=== PATIENT | male | born 1930 | race Caucasian/White ===

== ENCOUNTER 2018-04-29 10:13 | Observation (INO) ==
--- NOTE | 2018-04-29 10:28 | ED ---
HPI General Chief complaint: [employer] Sh[employer]er Problem Stated complaint: tube replacement Time Seen by Provider: 04/29/18 10:25 Source: patient Mode of arrival: other Limitations: no limitations History of Present Illness HPI Narrative: The patient is a 88-year-old male who presents to the emergency department via [facility] after his gastrostomy tube apparently fell out. The patient is a somewhat limited historian, but does state he has had the gastrostomy tube in place for 18 weeks. The gastrostomy tube was sent with the patient, it was an 18 [place] gastrostomy tube. The patient denies any nausea, vomiting, or abdominal pain. The patient is asymptomatic. I did asked the patient why he had a gastrostomy tube placed, he was unable to give an exact day when the gastrostomy tube was placed or for what specific reasons. Review the patient's paperwork reveals he recently had an intracranial hemorrhage with secondary dysphagia and a gastrostomy tube was placed. MD complaint: Reports other Onset (ago): day(s) Reason for Medical Clearance: other Place: other Alleged Intoxication: No Traumatic Symptoms: Reports denies traumatic injury Associated Symptoms: Reports denies other symptoms Treatments Prior to Arrival: Reports none Home Medications Medication Instructions Recorded Confirmed atorvastatin 80 mg FEEDING TUBE QPM 04/29/18 04/29/18 bisacodyl [Dulcolax (bisacodyl)] 10 mg [place] DAILY PRN 04/29/18 04/29/18 escitalopram oxalate [Lexapro] 10 mg FEEDING TUBE DAILY 04/29/18 04/29/18 famotidine 20 mg FEEDING TUBE BID 04/29/18 04/29/18 insulin lispro [Humalog U-100 1 sliding scale dose SUBCUT Q6HR 04/29/18 04/29/18 Insulin] ipratropium-albuterol 3 ml INHALATION Q6H PRN 04/29/18 04/29/18 levetiracetam [Keppra] 500 mg PO BID 04/29/18 04/29/18 magnesium citrate [Citroma] 296 ml PO QAM PRN 04/29/18 04/29/18 magnesium hydroxide [Milk of 30 ml PO HS PRN 04/29/18 04/29/18 Magnesia] metformin 750 mg PO QPM 04/29/18 04/29/18 polyethylene glycol 3350 [Miralax] 17 g FEEDING TUBE DAILY 04/29/18 04/29/18 sodium phosphates [Enema 118 ml [place] DAILY PRN 04/29/18 04/29/18 Disposable] Allergies Allergy/AdvReac Type Severity Reaction Status Date / Time No Known Allergies Allergy Verified 04/29/18 10:25 Review of Systems ROS: all other systems reviewed are negative [facility] Medical History Medical History Atrial fibrillation (Acute) Diabetes (Acute) Difficulty walking (Acute) Dysphagia (Acute) HTN (hypertension) (Acute) Hyperlipemia (Acute) Social History Social History Substance History: No History of Abuse Smoking Status: Cognitive impairment How Often Do You Have a Drink Containing Alcohol: Never Recent Travel in [facility] within the Last 8 Weeks: No Exam Narrative Exam Narrative: GENERAL: Awake, alert, pleasant 88-year-old male who appears his stated age and is in no acute respiratory distress. SKIN: Focused skin assessment warm/dry. HEAD: Atraumatic. Normocephalic. EYES: No injection or drainage. ENT: No nasal bleeding or discharge. Mucous membranes pink and moist. NECK: Trachea midline. No JVD. CARDIOVASCULAR: Regular rate and rhythm. No murmur appreciated. RESPIRATORY: No accessory muscle use. Clear to auscultation. Breath sounds equal bilaterally. GASTROINTESTINAL: Abdomen soft, non-tender, nondistended. Gastrostomy hole noted with crusting over the affected area. There do appear to be suture ties still in place. MUSCULOSKELETAL: No obvious deformities. No clubbing. No cyanosis. No edema. NEUROLOGICAL: Awake and alert. No obvious cranial nerve deficits. Motor grossly within normal limits. Normal speech. Follows simple directions. PSYCHIATRIC: Appropriate mood and affect; insight and judgment normal. Course Initial Documented Vital Signs Temperature 98.0 F 04/29/18 10:35 Pulse Rate 68 04/29/18 10:35 Respiratory Rate 20 04/29/18 10:35 Blood Pressure 158/70 H 04/29/18 10:35 Pulse Oximetry 96 04/29/18 10:35 Last Documented Vital Signs Temperature 98.0 F 04/29/18 10:35 Pulse Rate 68 04/29/18 10:35 Respiratory Rate 20 04/29/18 10:35 Blood Pressure 158/70 H 04/29/18 10:35 Pulse Oximetry 96 04/29/18 10:35 Medical Decision Making MDM Narrative Medical decision making narrative: I was unable to place the 18 [place] gastrostomy tube at bedside. I had a discussion with the radiologist, there is no interventional radiologist in house. Therefore, patient will have labs drawn and sent and will be scheduled for outpatient gastrostomy tube placed tomorrow. The patient will have an IV placed for IV hydration placed on normal saline. The patient will be transferred back to the detention with paperwork so they can call and schedule an outpatient gastrostomy tube placement tomorrow. Medical Screen Exam Complete: Yes Emergency Medical Condition: Yes Differential Diagnosis Differential Diagnosis: Differential diagnosis includes gastrostomy tube dislodgment, gastrostomy tube malfunction, dysphagia, recent intracranial hemorrhage. Lab Data Result diagrams: 04/29/18 11:00 04/29/18 11:00 Lab Results 04/29/18 04/29/18 04/29/18 Range/Units 11:00 11:00 11:00 WBC 8.8 (4.0-11.0) th/mm3 RBC 4.78 (4.50-5.90) mil/mm3 Hgb 14.1 (13.0-17.0) gm/dL Hct 42.3 (39.0-51.0) % MCV 88.5 (80.0-100.0) fL MCH 29.5 (27.0-34.0) pg MCHC 33.3 (32.0-36.0) % RDW 14.6 (11.6-17.2) % Plt Count 169 (150-450) th/mm3 MPV 7.6 (7.0-11.0) fL Neut % (Auto) 80.2 H (16.0-70.0) % Lymph % (Auto) 12.4 (9.0-44.0) % Clarke % (Auto) 6.9 (0.0-8.0) % Eos % (Auto) 0.3 (0.0-4.0) % Baso % (Auto) 0.2 (0.0-2.0) % Neut # (Auto) 7.0 (1.8-7.7) th/mm3 Lymph # (Auto) 1.1 (1.0-4.8) th/mm3 Clarke # (Auto) 0.6 (0.0-0.9) th/mm3 Eos # (Auto) 0.0 (0.0-0.4) th/mm3 Baso # (Auto) 0.0 (0.0-0.2) th/mm3 WBC Differential . Differential Comment Auto diff final PT 10.9 (9.8-11.6) sec INR 1.1 Ratio APTT 27.8 (23.4-31.7) sec Sodium 137 (136-145) meq/L Potassium 4.3 (3.5-5.1) meq/L Chloride 104 (98-107) meq/L Carbon Dioxide 19.9 L (21.0-32.0) meq/L Anion Gap 13 (5-15) meq/L BUN 13 (7-18) mg/dL Creatinine 0.97 (0.60-1.30) mg/dL Estimated GFR 73 L (>89) mL/min Random Glucose 116 H (74-106) mg/dL Calcium 8.7 (8.5-10.1) mg/dL Discharge Plan Discharge Order Discharge Orders: Discharge Order (Routine); Ordered 04/29/18 Ordered By: Ronan Dove Physicians Team ED Provider: Ronan Dove Primary Care Provider: Pranav Briscoe Rxs /Orders / Referrals /Forms Prescriptions: No Action atorvastatin 40 mg Tablet 80 mg Feeding Tube QPM RF: 0 famotidine 20 mg Tablet 20 mg Feeding Tube BID RF: 0 bisacodyl [Dulcolax (bisacodyl)] 10 mg Suppository 10 mg [place] DAILY PRN (Reason: If no results from Milk of Mag) RF: 0 sodium phosphates [Enema Disposable] 19-7 gram/118 mL Enema 118 ml [place] DAILY PRN (Reason: If no results from suppository) RF: 0 magnesium citrate [Citroma] Solution 296 ml PO QAM PRN (Reason: If no results from enema) RF: 0 escitalopram oxalate [Lexapro] 10 mg Tablet 10 mg Feeding Tube DAILY RF: 0 ipratropium-albuterol 0.5 mg-3 mg(2.5 mg base)/3 mL Solution For Nebulization 3 ml INHALATION Q6H PRN (Reason: Shortness Of Breath) RF: 0 polyethylene glycol 3350 [Miralax] 17 gram Powder In Packet 17 g Feeding Tube DAILY RF: 0 levetiracetam [Keppra] 500 mg Tablet 500 mg PO BID RF: 0 magnesium hydroxide [Milk of Magnesia] 400 mg/5 mL Suspension 30 ml PO HS PRN (Reason: If no BM in 3 days) RF: 0 insulin lispro [Humalog U-100 Insulin] 100 unit/mL Solution 1 sliding scale dose SUBCUT Q6HR RF: 0 metformin 750 mg Tablet Extended Release 24 Hr 750 mg PO QPM RF: 0 Status ED Status: Ready for Discharge
[2018-04-29] MEDS: Sod Chloride 0.9% Inj 1,000 ML IV.CONT SCH (11:15)
[2018-04-29 11:34] LABS: Baso % (Auto) 0.2 % (0.0-2.0); Eos % (Auto) 0.3 % (0.0-4.0); Hematocrit 42.3 % (39.0-51.0); Hemoglobin 14.1 gm/dL (13.0-17.0); Lymph # (Auto) 1.1 th/mm3 (1.0-4.8); Lymph % (Auto) 12.4 % (9.0-44.0); Mean Corpuscular HGB Conc 33.3 % (32.0-36.0); Mean Corpuscular Hemoglobin 29.5 pg (27.0-34.0); Mean Corpuscular Volume 88.5 fL (80.0-100.0); Mean Platelet Volume 7.6 fL (7.0-11.0); Mono # (Auto) 0.6 th/mm3 (0.0-0.9); Mono % (Auto) 6.9 % (0.0-8.0); Neut % (Auto) 80.2 % (16.0-70.0); Platelet Count 169 th/mm3 (150-450); Red Blood Count 4.78 mil/mm3 (4.50-5.90); Red Cell Distribution Width 14.6 % (11.6-17.2); White Blood Count 8.8 th/mm3 (4.0-11.0)
[2018-04-29 11:51] LABS: Activated Partial Thrombo Time 27.8 sec (23.4-31.7); INR 1.1 Ratio; Prothrombin Time 10.9 sec (9.8-11.6)
[2018-04-29 11:52] LABS: Calcium 8.7 mg/dL (8.5-10.1); Carbon Dioxide 19.9 meq/L (21.0-32.0); Potassium 4.3 meq/L (3.5-5.1)
[2018-04-29] MEDS ORDERED: Dextrose 50% in Water 50 ML Vial IV.PUSH PRN (16:44)
--- NOTE | 2018-04-29 16:56 | P.HPIM ---
History of Present Illness Primary Care Physician: Pranav Briscoe DO Chief Complaint: PEG tube malfunction History of Present Illness: The patient is an 88-year-old male with a past medical history of CVA and diabetes who is presenting to the hospital after his PEG tube fell out. The patient is unsure about the circumstances of how the PEG tube came out. He says he is on tube feeds as his doctors tell him he is unable to eat anything. He states that he tolerates the tube feeds well. He denies any nausea or vomiting but does endorse diarrhea occasionally. The patient says that he has some weakness all over his body from the stroke he has had. He does seem to agree that he does choke when he tries to eat. He ambulates with a walker. He is looking forward to going home soon. He has no acute complaints. He denies any fevers and has no pain. Review of Systems All other systems reviewed negative except as stated in HPI PMFSH - History History Provided By: Medical Record - Medical History Medical History: Medical History (Last Updated 04/29/18 @ 16:51 by Meliton García DO) Atrial fibrillation CVA (cerebral vascular accident) Diabetes Difficulty walking Dysphagia HTN (hypertension) Hyperlipemia - Family History Family History: Family History (Last Updated 04/29/18 @ 16:51 by Meliton García DO) Other No pertinent family history - Social History I have reviewed the patient's Social History: Yes - Tobacco History Second Hand Smoke Exposure: No Tobacco Use In Past 30 Days: No Smoking Status: Cognitive impairment - Alcohol History How Often Do You Have a Drink Containing Alcohol: Never - Substance Use History Substance History: No History of Abuse - Travel History Recent Travel in the [facility] Within the Last 8 Weeks: No - Immunization History Tetanus Immunization: Unable to Assess Medications and Allergies Active Medications: Active Medications Dextrose (D50w Vial) 50 ml IV.PUSH UNSCH PRN PRN Reason: PER HYPOGLYCEMIA PROTOCOL Famotidine (Pepcid Pf Inj) 20 mg IV.PUSH Q12HR MARINA Glucagon (Glucagon Inj) 1 mg OTHER PRN PRN PRN Reason: for Hypoglycemia Protocol Sodium Chloride (Ns Inj) 1,000 mls @ 42 mls/hr IV.CONT .[id number] MARINA Last Admin: 04/29/18 11:15 Dose: 42 mls/hr Levetiracetam 500 mg/ Sodium (Chloride) 105 mls @ 400 mls/hr IV.SIG Q12H MARINA Insulin Aspart (Novolog Insulin Correctional Sugar Inj) 0 unit SQ Q6HR MARINA; Protocol Ondansetron HCl (Zofran Inj) 4 mg IV.PUSH Q6H PRN PRN Reason: NAUSEA OR VOMITING Sodium Chloride (Ns Flush) 2 ml IV.FLUSH PRN PRN PRN Reason: FLUSH AFTER USING IV ACCESS Sodium Chloride (Ns Flush) 2 ml IV.FLUSH BID MARINA Allergies Allergy/AdvReac Type Severity Reaction Status Date / Time No Known Allergies Allergy Verified 04/29/18 10:25 Home Medications Medication Instructions Recorded Confirmed Type atorvastatin 80 mg FEEDING TUBE QPM 04/29/18 04/29/18 History bisacodyl [Dulcolax (bisacodyl)] 10 mg [place] DAILY PRN 04/29/18 04/29/18 History escitalopram oxalate [Lexapro] 10 mg FEEDING TUBE DAILY 04/29/18 04/29/18 History famotidine 20 mg FEEDING TUBE BID 04/29/18 04/29/18 History insulin lispro [Humalog U-100 1 sliding scale dose SUBCUT Q6HR 04/29/18 History Insulin] ipratropium-albuterol 3 ml INHALATION Q6H PRN 04/29/18 04/29/18 History levetiracetam [Keppra] 500 mg PO BID 04/29/18 04/29/18 History magnesium citrate [Citroma] 296 ml PO QAM PRN 04/29/18 04/29/18 History magnesium hydroxide [Milk of 30 ml PO HS PRN 04/29/18 04/29/18 History Magnesia] metformin 750 mg PO QPM 04/29/18 04/29/18 History polyethylene glycol 3350 [Miralax] 17 g FEEDING TUBE DAILY 04/29/18 04/29/18 History sodium phosphates [Enema 118 ml [place] DAILY PRN 04/29/18 04/29/18 History Disposable] Exam Vital signs: Vital Signs 04/29/18 10:35 Temperature 98.0 F Pulse Rate 68 Respiratory Rate 20 Blood Pressure 158/70 H Pulse Oximetry 96 Intake & Output 04/28/18 04/29/18 04/29/18 18:59 06:59 18:59 Weight 77.111 kg Narrative: GENERAL: No apparent distress. SKIN: Focused skin assessment warm/dry. HEAD: Atraumatic. Normocephalic. EYES: No injection or drainage. ENT: No nasal bleeding or discharge. Mucous membranes pink and moist. NECK: Trachea midline. No JVD. CARDIOVASCULAR: Regular rate and rhythm. No murmur appreciated. RESPIRATORY: No accessory muscle use. Clear to auscultation. Breath sounds equal bilaterally. GASTROINTESTINAL: Abdomen soft, non-tender, nondistended. Gastrostomy hole noted with crusting over the affected area. MUSCULOSKELETAL: No obvious deformities. No clubbing. No cyanosis. No edema. NEUROLOGICAL: Awake and alert to person and place. No obvious cranial nerve deficits. Motor grossly within normal limits. Normal speech. Follows simple directions. Results - Labs CBC & Chem 7: 04/29/18 11:00 04/29/18 11:00 Labs: Short CBC 04/29/18 Range/Units 11:00 WBC 8.8 (4.0-11.0) th/mm3 Hgb 14.1 (13.0-17.0) gm/dL Hct 42.3 (39.0-51.0) % Plt Count 169 (150-450) th/mm3 [facility] 04/29/18 11:00 Sodium 137 Potassium 4.3 Chloride 104 Carbon Dioxide 19.9 L BUN 13 Creatinine 0.97 Calcium 8.7 Caprini VTE Risk Assessment Caprini VTE Risk Assessment: Moderate/High Risk (score >= 2) Caprini Risk Assessment Model: Point Value = 1 Point Value = 2 Point Value = 3 Point Value = 5 Age 41-60 Minor surgery BMI > 25 kg/m2 Swollen legs Varicose veins or History of unexplained or recurrent spontaneous Oral contraceptives or hormone replacement Sepsis (< 1 month) Serious lung disease, including pneumonia (< 1 month) Abnormal pulmonary function Acute myocardial infarction Congestive heart failure (< 1 month) History of inflammatory bowel disease Medical patient at bed rest Age 61-74 Arthroscopic surgery Major open surgery (> 45 min) Laparoscopic surgery (> 45 min) Malignancy Confined to bed (> 72 hours) Immobilizing plaster cast Central venous access Age >= 75 History of VTE Family history of VTE Factor V Leiden Prothrombin [id number] Lupus anticoagulant Anticardiolipin antibodies Elevated serum homocysteine Heparin-induced thrombocytopenia Other congenital or acquired thrombophilia Stroke (< 1 month) Elective arthroplasty Hip, pelvis, or leg fracture Acute spinal cord injury (< 1 month) Prophylaxis Regimen: Total Risk Factor Score Risk Level Prophylaxis Regimen 0-1 Low Early ambulation 2 Moderate Order ONE of the following: *Sequential Compression Device (SCD) *Heparin 5000 units SQ BID 3-4 Higher Order ONE of the following medications: *Heparin 5000 units SQ TID *Enoxaparin/Lovenox 40 mg SQ daily (WT < 150 kg, CrCl > 30 mL/min) *Enoxaparin/Lovenox 30 mg SQ daily (WT < 150 kg, CrCl > 10-29 mL/min) *Enoxaparin/Lovenox 30 mg SQ BID (WT < 150 kg, CrCl > 30 mL/min) AND/OR *Sequential Compression Device (SCD) 5 or more Highest Order ONE of the following medications: *Heparin 5000 units SQ TID (Preferred with Epidurals) *Enoxaparin/Lovenox 40 mg SQ daily (WT < 150 kg, CrCl > 30 mL/min) *Enoxaparin/Lovenox 30 mg SQ daily (WT < 150 kg, CrCl > 10-29 mL/min) *Enoxaparin/Lovenox 30 mg SQ BID (WT < 150 kg, CrCl > 30 mL/min) AND *Sequential Compression Device (SCD) Assessment and Plan - Plan PEG tube malfunction The patient's PEG tube came out and the circumstances are unclear. -Interventional radiology has been consulted for PEG tube replacement on 2017. INR is not elevated. -IV fluids. -Resume tube feeding once tube has been replaced. -Home medications on hold. CVA With dysphagia. On tube feeds and Keppra. -switch to IV Keppra. -continue home medication regimen once PEG tube replaced. -case management consult for discharge back to facility once PEG has been replaced. HTN Blood pressure has been elevated. -Vasotec IV as needed. Diabetes On metformin and insulin as an outpatient. -Hold metformin. -Insulin sliding scale. PPx: SCDs
[2018-04-29] MEDS: Insulin NovoLOG Aspart Correctional Sugar Inj SQ SCH (19:22)
[2018-04-29] MEDS: Famotidine PF Inj 20 MG/2 ML Vial IV.PUSH SCH (21:04)
[2018-04-30] MEDS: Insulin NovoLOG Aspart Correctional Sugar Inj SQ SCH ×4 (00:47→19:22)
[2018-04-30 06:47] LABS: Baso % (Auto) 0.3 % (0.0-2.0); Eos # (Auto) 0.1 th/mm3 (0.0-0.4); Eos % (Auto) 0.9 % (0.0-4.0); Hematocrit 35.5 % (39.0-51.0); Hemoglobin 12.3 gm/dL (13.0-17.0); Lymph # (Auto) 1.2 th/mm3 (1.0-4.8); Lymph % (Auto) 19.7 % (9.0-44.0); Mean Corpuscular HGB Conc 34.7 % (32.0-36.0); Mean Corpuscular Hemoglobin 29.6 pg (27.0-34.0); Mean Corpuscular Volume 85.3 fL (80.0-100.0); Mean Platelet Volume 7.8 fL (7.0-11.0); Mono # (Auto) 0.6 th/mm3 (0.0-0.9); Mono % (Auto) 9.8 % (0.0-8.0); Neut # (Auto) 4.2 th/mm3 (1.8-7.7); Neut % (Auto) 69.3 % (16.0-70.0); Platelet Count 158 th/mm3 (150-450); Red Blood Count 4.16 mil/mm3 (4.50-5.90); Red Cell Distribution Width 15.1 % (11.6-17.2); White Blood Count 6.1 th/mm3 (4.0-11.0)
[2018-04-30 07:18] LABS: Alanine Aminotransferase 28 U/L (12-78); Albumin 3.3 g/dL (3.4-5.0); Alkaline Phosphatase 97 U/L (45-117); Anion Gap 11 meq/L (5-15); Aspartate Aminotransferase 32 U/L (15-37); Blood Urea Nitrogen 11 mg/dL (7-18); Calcium 8.2 mg/dL (8.5-10.1); Carbon Dioxide 22.3 meq/L (21.0-32.0); Chloride 108 meq/L (98-107); Glomerular Filtration Rate Greater Than 89 mL/min (>89); Glucose,Random 80 mg/dL (74-106); Potassium 3.4 meq/L (3.5-5.1); Sodium 141 meq/L (136-145); Total Protein 6.3 g/dL (6.4-8.2)
[2018-04-30] MEDS: Famotidine PF Inj 20 MG/2 ML Vial IV.PUSH SCH ×2 (08:01→21:30)
[2018-04-30] MEDS ORDERED: fentaNYL Citrate Inj 100 MCG/2 ML Ampul ONE (09:45)
--- NOTE | 2018-04-30 10:04 | P.RAD ---
Post Procedure Progress Note - Pre Procedure Diagnosis (1) Malfunction of gastrostomy tube - Post Procedure Diagnosis (1) Malfunction of gastrostomy tube - Procedure Information Procedure Date: 04/30/18 Supervising Radiologist: Malik Lamas MD Anesthesia: Conscious Sedation - Plan of Activity Patient to Unit: Nursing Unit Patient Condition: Fair See PACS Report for procedural detail/treatment. Feeding Tube Feeding Tube: Gastrostomy Procedure: Replacement Khmer Tube Size: 18
[2018-04-30] MEDS ORDERED: Iohexol 350 MG/ML 50 ML Vial (for Cath Lab) G-TUBE ONE (10:15)
--- NOTE | 2018-04-30 10:50 | IR ---
EXAM DATE: 04/30/2018 10:29 AM EST AGE/SEX: 88 years / Male INDICATIONS: Patient with a history of PEG that fell out. CLINICAL DATA: This is the patient's initial encounter. Patient reports that signs and symptoms have been present for 1 day and indicates a pain score of 0/10. MEDICAL/SURGICAL HISTORY: Diabetes. Hypertension. Hyperlipidemia A-fib CVA Dysphagia None. COMPARISON: No prior exams available for comparison. FLUORO TIME (min): 2.5 IMAGE SERIES: 1 RADIATION DOSE: 31.6 mGy SEDATION TIME (min): 30 CONTRAST (cc): 15 Omnipaque (iohexol) 350 MEDICATION(S): 1mg midazolam (Versed) IV 75mcg fentanyl (Sublimaze) IV DEVICE(S): 18 Indonesian gastrostomy tube . . PROCEDURE: 1. Fluoroscopically guided gastrostomy tube placement. 2. Conscious sedation with continuous EKG and oximetry monitoring. The risks, benefits and alternatives to the procedure were explained and verbal and written consent w as obtained. The site was prepped in sterile fashion. Full sterile technique was used, including ca p, mask, sterile gloves and gown and a large sterile sheet. Hand hygiene and 2% chlorhexidine and/or betadine/alcohol prep was utilized per protocol for cutaneous antisepsis. The skin and subcutaneous tissues were infiltrated with local anesthetic solution. Through the previously placed tract An 0.035 wire was advanced into the stomach. The tract was dilate d. The gastrostomy tube was introduced through a peel-away sheath. The position was confirmed with a n injection of contrast. Conscious sedation was performed with the prescribed dosages and duration as above in the presence of an independent trained radiology nurse to assist in the monitoring of the patient. EKG and oximetry remained stable throughout the procedure. The patient tolerated the procedure well and there were n o complications. The patient was sent to post anesthesia recovery in stable condition. CONCLUSION: 1. Uncomplicated gastrostomy tube placement as above. Electronically signed by: Malik Lamas MD Board Certified Radiologist 04/30/2018 10:48 AM EST
[2018-04-30] MEDS: Sod Chloride 0.9% Inj 1,000 ML IV.CONT SCH (12:16)
--- NOTE | 2018-04-30 16:33 | P.PNIM ---
Subjective Interval history: Patient is seen lying quietly in bed. Sleepy but wakes easily. Denies any significant abdominal pain or discomfort. No fever or chills. No nausea or vomiting. He is eager to get PEG replaced. Physical Exam Vital signs: Last Vital Signs Temp 97.4 F L 04/30/18 15:41 Pulse 62 04/30/18 15:41 Resp 20 04/30/18 15:41 BP 157/67 H 04/30/18 15:41 Pulse Ox 99 04/30/18 15:41 Intake & Output 04/28/18 04/29/18 04/30/18 05/01/18 06:59 06:59 06:59 06:59 Intake Total 210 / 210 Balance 210 / 210 Weight 77.111 kg Narrative: GENERAL: Well-nourished, well-developed adult male in no apparent distress. SKIN: Focused skin assessment warm/dry. CARDIOVASCULAR: Regular rate and rhythm. No murmur appreciated. RESPIRATORY: No accessory muscle use. Clear to auscultation. Breath sounds equal bilaterally. GASTROINTESTINAL: Abdomen soft, non-tender, nondistended. Gastrostomy hole noted with crusting over the affected area. MUSCULOSKELETAL: No obvious deformities. No clubbing. No cyanosis. No edema. NEUROLOGICAL: Awake and alert to person and place. No obvious cranial nerve deficits. Motor grossly within normal limits. Normal speech. Results Labs CBC & Chem 7: 04/30/18 05:36 04/30/18 05:36 Imaging Imaging: Impressions Gastrostomy Tube Placement 04/30/18 00:00 CONCLUSION: 1. Uncomplicated gastrostomy tube placement as above. Assessment and Plan Plan PEG tube malfunction The patient's PEG tube came out and the circumstances are unclear. -Interventional radiology has been consulted - PEG tube replaced on 04/30/2018. -IV fluids. -Resume tube feeding once tube has been replaced. -Home medications on hold. CVA With dysphagia. On tube feeds and Keppra. -switch to IV Keppra. -continue home medication regimen once PEG tube replaced. -case management consult for discharge back to facility once PEG has been replaced. HTN Blood pressure has been elevated. -Vasotec IV as needed. Diabetes On metformin and insulin as an outpatient. -Hold metformin. -Insulin sliding scale. PPx: SCDs Progress Note: Quality VTE Deep Vein Thrombosis/Pulmonary Embolism Present on Admission: No
[2018-05-01] MEDS: Insulin NovoLOG Aspart Correctional Sugar Inj SQ SCH ×3 (00:54→13:35)
[2018-05-01] MEDS: Famotidine PF Inj 20 MG/2 ML Vial IV.PUSH SCH (08:13)
--- NOTE | 2018-05-01 09:27 | P.DS ---
Date of admission: 04/29/18 17:49 Primary care physician: Pranav Briscoe DO Brief History from admission: The patient is an 88-year-old male with a past medical history of CVA and diabetes who is presenting to the hospital after his PEG tube fell out. The patient is unsure about the circumstances of how the PEG tube came out. He says he is on tube feeds as his doctors tell him he is unable to eat anything. He states that he tolerates the tube feeds well. He denies any nausea or vomiting but does endorse diarrhea occasionally. The patient says that he has some weakness all over his body from the stroke he has had. He does seem to agree that he does choke when he tries to eat. He ambulates with a walker. He is looking forward to going home soon. He has no acute complaints. He denies any fevers and has no pain. DS: Summary Hospital Course: Sent from senior living for peg tube malfunction. Peg tube replaced on 04/30/18. Dc back too rehab to continue recovery for CVA - Time Spent with Patient Total time spent providing and/or coordinating discharge services: 20 Less than 30 minutes - Quality: AMI Clinical Trial Participant: No - Quality: Stroke Symptom Onset Unknown: No - Quality: VTE Is this test being ordered to rule out VTE?: No Deep Vein Thrombosis/Pulmonary Embolism Present on Admission: No Exam Vital signs: Vital Signs 04/30/18 10:15 04/30/18 10:30 04/30/18 10:45 Temperature 97.8 F Pulse Rate 61 56 L 54 L Respiratory Rate 16 16 18 Blood Pressure 107/54 L 123/62 123/62 Pulse Oximetry 99 99 97 04/30/18 11:15 04/30/18 12:00 04/30/18 15:41 Temperature 97.3 F L 97.4 F L Pulse Rate 52 L 64 62 Respiratory Rate 18 12 20 Blood Pressure 120/56 L 155/70 H 157/67 H Pulse Oximetry 98 98 99 04/30/18 20:00 04/30/18 23:34 05/01/18 04:00 Temperature 97.4 F L 98.2 F Pulse Rate 58 L 65 61 Respiratory Rate 14 14 14 Blood Pressure 152/65 H 141/70 H 144/67 H Pulse Oximetry 98 98 96 05/01/18 07:21 Temperature 97.8 F Pulse Rate 58 L Respiratory Rate 12 Blood Pressure 158/72 H Pulse Oximetry 98 Intake & Output 04/30/18 05/01/18 05/01/18 18:59 06:59 18:59 Intake Total 105 / 105 105 / 105 Balance 105 / 105 105 / 105 Intake: IV 105 / 105 105 / 105 Keppra Inj 500 MG In NS Inj 100 105 / 105 105 / 105 ML @ 400 mls/hr IV.SIG Q12H MARINA Rx#:[id number] Other: # Voids 1 # Urine Diapers 2 Date of Last Bowel Movement 04/29/18 - Constitutional no acute distress - Routine HEENT Exam Eye: Present: PERRL ENT: Present: mucous membranes moist - Routine Neck Exam Present: supple - Routine Respiratory Exam Present: CTA bilaterally - Routine Cardiovascular Exam Present: S1, S2 - Routine Abdominal Exam Present: soft, normoactive bowel sounds - Routine Extremities Exam Present: edema - Routine Skin Exam Present: dry, warm Comments: dressing to abdomen - Routine Neurological Exam Present: alert Results Procedures completed during hospitalization: peg tube Labs on day of discharge: Labs from last 24 hours 05/01/18 05/01/18 05/01/18 08:18 05:46 01:06 POC Glucose 82 123 H 151 H 05/01/18 04/30/18 04/30/18 00:47 18:43 13:38 POC Glucose 60 L 75 88 - Impressions ITS Impressions Gastrostomy Tube Placement 04/30/18 00:00 CONCLUSION: 1. Uncomplicated gastrostomy tube placement as above. Discharge Plan - Discharge Disposition Patient Disposition: Discharge to SNF - Discharge Condition Condition: Stable - Discharge Order Discharge Orders: Discharge Order (Routine); Ordered 05/01/18 Ordered By: Cee Vargas ED Use Only Admit Order (Routine); Ordered 04/29/18 Ordered By: Ronan Dove - Physicians Team Primary Care Provider: Pranav Briscoe Attending Provider: Pranav Briscoe Other Providers: Jose Davison
[2018-05-01] MEDS: Sod Chloride 0.9% Inj 1,000 ML IV.CONT SCH (10:40)
[2018-05-01 12:18] VITALS: PULSE 63; RESP 16; O2SAT 97
[2018-05-01 15:30] VITALS: BP 127/61; TEMP 97.9
== END 2018-05-01 19:25 ==
LOC: NEPE 10:13 → NEDA 10:13 → NEPHCDU 20:53
PROVIDERS: ADMIT Family Medicine; ATTEND Family Medicine
CPT/HCPCS: 43750; 49440; 80048; 80053; 82948; 82962; 85025; 85610; 85730; 90761; 96361; 96365; 96366; 96375; 96376; 99145; 99152; 99153; 99285; B4084; B4086; C1769; C9238; G0378; J1953; J2250; J3010; J7030; Q9967